=== PATIENT | male | born 1970 | race African-American/Black ===

== ENCOUNTER 2020-08-19 15:18 | Emergency (ER) | payer SELFPAY ==
[~2020-08-19] VITALS: Ht 182.9 cm; Wt 122.5 kg
[2020-08-19] MEDS ORDERED: SODIUM CHLORIDE 0.9% 1000ML 1,000 ML IV SCH ×2 (15:30→17:30)
[2020-08-19 15:43] LABS: BASOPHILS # (AUTO) 0.2 (0.0-0.1); BASOPHILS % 0.8 % (0.0-1.0); HEMATOCRIT 40.7 % (38.2-49.6); HEMOGLOBIN 14.1 g/dL (14.0-18.0); LYMPHOCYTES # (AUTO) 1.1 (1.0-3.2); LYMPHOCYTES % 6.2 % (18.0-39.1); MEAN CORPUSCULAR HEMOGLOBIN 30.8 pg (28-32); MEAN CORPUSCULAR HGB CONC 34.6 g/dL (31-35); MEAN CORPUSCULAR VOLUME 88.9 fL (81-99); MONOCYTES # (AUTO) 0.4 (0.2-0.8); MONOCYTES % 2.1 % (4.4-11.3); NEUTROPHILS # (AUTO) 15.4 (2.1-6.9); NEUTROPHILS % 87.2 % (38.7-80.0); RED BLOOD COUNT 4.58 x10e6/uL (4.3-5.7); RED CELL DISTRIBUTION WIDTH 14.3 % (11.7-14.4)
[2020-08-19] MEDS ORDERED: THIAMINE HCL INJ 100 MG/ML 2ML VIAL IV ONE (15:45)
[2020-08-19] MEDS ORDERED: FOLIC ACID 5 MG/ML VIAL IV ONE (15:45)
[2020-08-19] MEDS ORDERED: LORAZEPAM INJ 2 MG/ML VIAL ONE ×2 (15:48→16:36)
[2020-08-19 15:50] LABS: PLATELET COUNT 27 x10e3/uL (140-360)
[2020-08-19 15:51] LABS: AMPHETAMINES SCREEN,URINE NEGATIVE (NEGATIVE); BENZODIAZEPINES SCREEN,URINE NEGATIVE (NEGATIVE); COLOR,URINE AMBER (YELLOW); KETONES,URINE NEGATIVE (NEGATIVE); LEUKOCYTE ESTERASE ,URINE NEGATIVE (NEGATIVE); NITRITE,URINE NEGATIVE (NEGATIVE); PHENCYCLIDINE SCREEN,URINE NEGATIVE (NEGATIVE); PROTEIN,URINE DIPSTICK 2+ (NEGATIVE); URINE UROBILINOGEN 0.2 mg/dL (0.2 - 1)
[2020-08-19 15:59] LABS: BACTERIA,URINE MANY /HPF; CLARITY,URINE CLOUDY (CLEAR)
[2020-08-19 16:00] LABS: AMORPHOUS SEDIMENT,URINE MANY (FEW)
[2020-08-19 16:05] LABS: ALBUMIN 1.9 g/dL (3.5-5.0); ALBUMIN/GLOBULIN RATIO 0.3 (0.8-2.0); ANION GAP 30.4 mmol/L (8-16); CREATININE, SERUM 5.3 mg/dL (0.72-1.25); POTASSIUM 4.4 mmol/L (3.5-5.1)
[2020-08-19 16:09] LABS: SALICYLATE < 5.0 mg/dL (0-30)
[2020-08-19 16:19] LABS: B-TYPE NATRIURETIC PEPTIDE2 2088.2 pg/mL (0-100)
[2020-08-19] MEDS ORDERED: LORAZEPAM INJ 2 MG/ML VIAL IV ONE ×2 (16:30)
[2020-08-19] MEDS ORDERED: CEFEPIME HCL 1GM 1 GM in SODIUM CHLORIDE 0.9% 50ML 50 ML IV STA (16:39)
[2020-08-19 16:42] LABS: INR 1.2; PROTHROMBIN TIME 15.9 seconds (11.9-14.5)
[2020-08-19 16:43] LABS: PARTIAL THROMBOPLASTIN TIME 27.5 seconds (23.8-35.5)
[2020-08-19] MEDS ORDERED: PROPOFOL IV EMULSION 0 ML IV ONE (16:47)
[2020-08-19] MEDS ORDERED: CEFEPIME HCL 1 GM VIAL ONE (16:51)
[2020-08-19] MEDS ORDERED: VANCOMYCIN 1GM/NS 250 ML 250 ML ONE (16:51)
[2020-08-19] MEDS ORDERED: PROPOFOL IV EMULSION 50 ML IV ONE ×2 (16:58→17:49)
[2020-08-19 17:08] LABS: ABG PCO2 20 mmHg (35-45); ABG PH 7.23 (7.35-7.45)
[2020-08-19 17:09] LABS: ABG HCO3 8 mmol/L (22-26); ABG PO2 100 mmHg (80-105); ABG TCO2 9
[2020-08-19] MEDS ORDERED: MIDAZOLAM HCL 50 MG in SODIUM CHLORIDE 0.9% 100 ML 90 ML IV PRN ×4 (17:15)
[2020-08-19] MEDS ORDERED: PROPOFOL IV EMULSION 10MG/ML 100 ML IV SCH (17:15)
[2020-08-19] MEDS ORDERED: PROPOFOL IV EMULSION 10 MG/ML 20 ML VIAL IV ONE (17:15)
[2020-08-19] MEDS ORDERED: MIDAZOLAM HCL 2 MG/2 ML VIAL IV STA (17:15)
[2020-08-19] MEDS ORDERED: SUCCINYLCHOLINE 200 MG/10 ML SYR IV STA (17:15)
[2020-08-19 17:36] LABS: ABG HCO3 9 mmol/L (22-26); ABG PCO2 26 mmHg (35-45); ABG PH 7.17 (7.35-7.45); ABG PO2 76 mmHg (80-105); ABG TCO2 10
[2020-08-19] MEDS ORDERED: PROPOFOL IV EMULSION 50 ML IV SCH (18:00)
[2020-08-19] MEDS ORDERED: SODIUM BICARBONATE 8.4% INJ 50 ML SYR IV STA (18:00)
[2020-08-19] MEDS ORDERED: VANCOMYCIN 500MG/NS 0.9% 100ML 100 ML IV SCH (18:00)
[2020-08-19] MEDS ORDERED: SODIUM BICARBONATE 8.4% SYRING 100 ML ONE (18:10)
[2020-08-19 19:18] LABS: BAND NEUTROPHILS % (MANUAL) 6 %; LYMPHOCYTES % (MANUAL) 8 % (19-48); METAMYELOCYTES % (MANUAL) 5 % (0-0); MONOCYTES % (MANUAL) 3 % (3.4-9.0); NEUTROPHILS % (MANUAL) 77 % (40-74); PROMYELOCYTES % (MANUAL) 1 % (0-0)
[2020-08-19 19:19] LABS: PLATELET ESTIMATE MARKEDLY DECREASED; RBC MORPHOLOGY COMMENT NORMAL
[2020-08-19 19:20] LABS: PLATELET MORPHOLOGY COMMENT FEW GIANT
== END 2020-08-19 18:15 | disposition other institution (70) ==
LOC: ER 15:35
DX: R41.82 Altered mental status, unspecified (principal); G93.40 Encephalopathy, unspecified; R06.02 Shortness of breath; N39.0 Urinary tract infection, site not specified; Z20.822 Contact with and (suspected) exposure to COVID-19
CPT/HCPCS: 31500; 36415; 36600; 51700; 70450; 71045 ×2; 80053; 80307; 80320; 80329 ×2; 81001; 82140; 82805; 82948; 83605; 83880; 84443; 84484; 85025; 85610; 85730; 87040; 87086; 93005; 94002; 99285; J0692; J2060; J2250; J2704; J3370 ×2; J3411; J7030; U0002